=== PATIENT | female | born 1995 | race Native Hawaiian/Other Pacific Islander ===

== ENCOUNTER 2018-08-03 16:29 | Outpatient (CLI) | payer OTHER | END 2018-08-03 16:32 | disposition short-term general hospital (02) | LOC: AMB 16:29 | DX: R41.82 Altered mental status, unspecified (principal); R07.89 Other chest pain; R06.02 Shortness of breath; R10.2 Pelvic and perineal pain; M25.552 Pain in left hip; M25.551 Pain in right hip; J98.19 Other pulmonary collapse; S01.01XA Laceration without foreign body of scalp, initial encounter; S82.202B Unspecified fracture of shaft of left tibia, initial encounter for open fracture type I or II; S82.402B Unspecified fracture of shaft of left fibula, initial encounter for open fracture type I or II; S42.301A Unspecified fracture of shaft of humerus, right arm, initial encounter for closed fracture; V59.49XA Driver of pick-up truck or van injured in collision with other motor vehicles in traffic accident, initial encounter; Y92.413 State road as the place of occurrence of the external cause | CPT/HCPCS: A0425; A0427 ==